=== PATIENT | female | born 1990 | race Caucasian/White ===

== ENCOUNTER 2018-06-11 13:21 | Outpatient (REF) | payer BC, SELFPAY ==
[2018-06-11 22:26] LABS: TSH (W/Ref FT4) 1.13 uIU/mL (0.358-3.74)
[2018-06-11 23:25] LABS: Vitamin B12 193 pg/mL (193-986)
== END 2018-06-11 13:41 ==
LOC: NCHCN 13:21
PROVIDERS: PCP Family Medicine; Visit Provider Nurse Practitioner Family
DX: F43.0 Acute stress reaction (principal); F51.04 Psychophysiologic insomnia
CPT/HCPCS: 82607; 84443

== ENCOUNTER 2020-01-10 13:26 | Outpatient (REF) | payer SELFPAY ==
[2020-01-13 17:35] LABS: Patient Race White; SARS-CoV-2 RNA Undetected (Undetected); SARS-CoV-2 Specimen Source Nasal
== END 2020-01-10 13:46 ==
LOC: NCHCN 13:26
PROVIDERS: PCP Family Medicine; Visit Provider Family Medicine
DX: Z20.828 Contact with and (suspected) exposure to other viral communicable diseases (principal)
CPT/HCPCS: U0003

== ENCOUNTER 2020-10-13 15:58 | Outpatient (REF) | payer BC, SELFPAY ==
[2020-10-13 21:19] LABS: HCT 37.5 % (36.0-46.0); HGB 12.6 g/dL (11.2-15.7); MCH 31.1 pg (27.0-33.0); MCHC 33.6 % (32.0-36.0); MCV 92.6 fL (80-95); MPV 9.4 fL (8.0-11.0); Platelet Count 365 10^3/uL (130-400); RBC 4.05 10^6/uL (3.93-5.22); RDW-SD 37.5 fL; WBC 7.02 10^3/uL (4.4-10.8)
[2020-10-13 21:36] LABS: Hemoglobin A1C 5.2 % (<5.7)
[2020-10-13 21:37] LABS: Calculated LDL 70 mg/dL (<100); Cholesterol 148 mg/dL (<200); HDL Cholesterol 37 mg/dL (40-60); TSH (W/Ref FT4) 2.12 uIU/mL (0.36-3.74); Triglyceride 209 mg/dL (<150)
== END 2020-10-13 15:59 | disposition home or self-care (01) ==
LOC: NCHCN 15:58
PROVIDERS: PCP Family Medicine; Visit Provider Family Medicine
DX: R40.0 Somnolence (principal)
CPT/HCPCS: 80061; 85027; 83036; 84443